=== PATIENT | female | born 1955 | race Caucasian/White ===

== ENCOUNTER 2018-04-10 02:25 | Inpatient (IN) | payer OTHER ==
[~2018-04-10] VITALS: Ht 152.4 cm; Wt 42.6 kg
[~2018-04-10 02:25] MED LIST: ARTIFICIAL TEA1 EACH OU; AVAPRO150 M1 PO; MULTIVITAMINS1 EAC9 PO; NASONEX17 GM NASB; PROBIOTIC1 EACH PO; RANITIDINE HCL150 MG PO; VAGIFEM10 MC1 VAG
--- NOTE | 2018-04-10 11:17 | Patient Discharge Instructions ---
Discharge Instructions General Discharge Information You were seen/treated for: Hip pain You had these procedures: Total hip replacement Watch for these problems: See pre printed sheet Other wound care: See pre printed sheet Diet Continue normal diet: Yes Activity Activity Self Limited: Yes Activity Limited to: Weight bear as tolerated Acute Coronary Syndrome Inclusion Criteria At DC or during hospital stay patient has or had the following: ACS DIAGNOSIS No Discharge Core Measures Meds if any: Prescribed or Continued at Discharge Meds if any: NOT Prescribed or Continued at Discharge Congestive Heart Failure Inclusion Criteria At DC or during hospital stay patient has or had the following: CHF DIAGNOSIS No Discharge Core Measures Meds if any: Prescribed or Continued at Discharge Meds if any: NOT Prescribed or Continued at Discharge Cerebrovascular accident Inclusion Criteria At DC or during hospital stay patient has or had the following: CVA/TIA Diagnosis No Discharge Core Measures Meds if any: Prescribed or Continued at Discharge Meds if any: NOT Prescribed or Continued at Discharge Venous thromboembolism Inclusion Criteria VTE Diagnosis No VTE Type NONE VTE Confirmed by (Test) NONE Discharge Core Measures - Per Current guidelines, there needs to be overlap - treatment for the first 5 days of Warfarin therapy. - If discharged on Warfarin prior to 5 days of - overlap therapy, the patient will need to be - assessed for post discharge needs including - *Post discharge parental anticoagulation - *Warfarin and/or parental anticoagulation education - *Follow up date to check INR post discharge At least 5 days overlap therapy as Inpatient No Meds if any: Prescribed or Continued at Discharge Note: Overlap Therapy is Warfarin and Anticoagulant Meds if any: NOT Prescribed or Continued at Discharge
[2018-04-10] MEDS ORDERED: COLACE100 M1 PO (11:19)
[2018-04-10] MEDS ORDERED: DILAUDID2 M1 PO (11:19)
[2018-04-10] MEDS ORDERED: MIRALAX17 G1 PO (11:19)
[2018-04-10] MEDS ORDERED: ASPIRIN EC81 M1 PO (11:19)
--- NOTE | 2018-04-10 11:21 | Surg Short-stay <48hrs Dis Sum ---
Visit Information Visit Dates Admission Date: 04/10/18 Discharge Date: 04/11/18 Surgical Short Stay DC Summary Admission Diagnosis: DJD/OA Final Diagnosis: Same, s/p L ENEDINA Procedure(s): L ENEDINA - see operative report Summary/Significant Findings: Pt underwent L ENEDINA by Dr Torres and was brought to the PACU in stable condition. Post op she was seen by PT and ambulated WBAT. She had aymptomatic hyponatremia for which she was given Sodium chloride tabs and her sodium level started trending back up to normal. She was able to void without difficulty, her vitals remained stable, her pain was well controlled and she was deemed stable for discharge home with services. Condition at Discharge: good Discharge Disposition: home health services Discharge instructions provided to patient/family: Yes Post discharge follow-up plan: Scheduled appointment with Dr Torres
--- NOTE | 2018-04-10 11:22 | Admission Core Measures ---
Acute Coronary Syndrome (CM) ACS Core Measures Acute Coronary Syndrome Diagnosis No Congestive Heart Failure (NEW) CHF Core Measures Congestive Heart Failure Diagnosis No Cerebrovascular Accident CVA Core Measures CVA/TIA Diagnosis No Venous Thromboembolism VTE Core Amie (View Protocol) VTE Risk Factors Surgery No Mechanical VTE Prophylaxis d/t N/A MechProphylax Ordered No VTE Pharm Prophylaxis d/t NA PharmProphylax ordered Problem List As ranked by this Provider includes Assessment & Plan 1. Status post total hip replacement, left HOME MEDS Home Med List Aspirin (Ecotrin*) 81 MG TABLET.DR 1 TAB PO BID blood thinner Dextran 70/Hypromellose (Artificial Tears) [address]ACH [address]OPERETTE 1 DROP OU PRN DRY EYES (Reported) Docusate Sodium (Colace) 100 MG CAPSULE 1 CAP PO BID constipation Estradiol (Vagifem) 10 MCG TABLET 1 TAB VAG SI HORMONES (Reported) Hydromorphone HCl (Dilaudid) 2 MG TABLET 1-2 TAB PO Q4P PRN pain Irbesartan (Avapro) 150 MG TABLET 1 TAB PO QHS BP (Reported) Lactobacillus Acidophilus (Probiotic) 10 BILLION CELL CAPSULE 1 CAP PO PRN PROBIOTICS (Reported) Mometasone Furoate (Nasonex) 50 MCG SPRAY.PUMP 1 SPRAY NASB DAILY PRN ALLERGIES (Reported) Multiple Vitamin (Multivitamins) 1 EACH TABLET 1 TAB PO DAILY SUPPLEMENT ( Reported) Polyethylene Glycol 3350 (Miralax) 17 GRAM POWD.PACK 1 PAC PO DAILY constipation Ranitidine (Ranitidine HCl) 150 MG TABLET 1 TAB PO BID GI (Reported) Discontinued Medications Aspirin (Ecotrin*) 81 MG TABLET.DR 1 TAB PO DAILY HEART/BLOOD (Reported) Discontinued reason: Changed Dose
--- NOTE | 2018-04-10 12:49 | PN- Orthopedic ---
Subjective Subjective: POST-OP CHECK PT in pacu, recovering well. spinal is still wearing off, pt has some return of mobility and is still mostly numb below the waist. No nausea, tolerating ice chips Deneis CP/SOB Objective Vital Signs and I&Os VSS. afebrile Physical Exam: gen- NAD resp- clear cardiac-RRR abd- soft, NT ext- left hip dressing clean and dry. 2+ DP pulse. no pedal edema Current Medications: Current Medications Sig/Sandie Start time Last Medication Dose Route Stop Time Status Admin Acetaminophen 0 .STK-MED ONE 04/10 905 DC PO Cefazolin Sodium 2,000 MG ONCE 04/10 0000 NR IV 04/10 2359 Estradiol 10 MCG .[SI] 04/10 1115 UNVr VAG Famotidine 20 MG BID 04/10 2100 AC PO Losartan Potassium 50 MG DAILY 04/11 0900 AC PO Oxycodone HCl 0 .STK-MED ONE 04/10 905 DC PO Oxycodone HCl 10 MG ONCE 04/10 0000 NR PO 04/10 2359 Assessment/Plan Assessment/Plan 62yo F SP L ENEDINA POD0. stable, recovering well in PACU pain management bowel regimen reg diet, IVF overnight PT- WBAT w RW dvt ppx- ASA, ALPS and early ambulation reg home meds FU AM labs DC planning- planning to stay [address] Torres in 6 weeks Core Measures Venous Thromboembolism VTE Risk Factors Surgery No Mechanical VTE Prophylaxis d/t N/A MechProphylax Ordered No VTE Pharm Prophylaxis d/t NA PharmProphylax ordered
[2018-04-10 13:29] VITALS: BP 130/60
--- NOTE | 2018-04-10 13:40 | RADIOLOGY REPORT ---
EXAMINATION: XR HIP, LEFT CLINICAL INFORMATION: Postop hip replacement COMPARISON: None TECHNIQUE: AP and crosstable lateral views of the left hip. FINDINGS: There is a total hip prosthesis with acetabular and femoral components in place. No fracture or dislocation is identified. There is air in the soft tissues likely related to recent surgery. IMPRESSION: Status post total hip prosthesis with hardware in place. No acute fracture or dislocation.
[2018-04-10 16:01] VITALS: BP 122/72
--- NOTE | 2018-04-10 16:07 | Operative Report ---
Operative/Inv Procedure Report Surgery Date: 04/10/18 Name of Procedure: Left total hip replacement Pre-Operative Diagnosis: Primary left hip DJD Post-Operative Diagnosis: Same Estimated Blood Loss: 250 Surgeon/Fancy Wire Drawer: Melissa GIBBONS,Nicolás Swift Anesthesia: block Operative/Procedure Note Note: Description of Procedure: The patient was taken to the operating room and positively identified. After induction of spinal anesthesia and administration of appropriate pre-operative antibiotics, the patient was positioned supine on the operating room table and all bony prominences were well padded. After performing a surgical timeout, the left lower extremity was prepped and draped in the usual sterile fashion. A direct anterior approach was made to the left hip. The incision was carried sharply through superficial soft tissues to the level of the fascia. Meticulous hemostasis was maintained with Bovie electocautery. The fascia over the tensor fascia tootie muscle was opened sharply and the interval between the TFL and the sartorius was entered bluntly taking care to stay lateral to the lateral femoral cutaneous nerve. Retractors were placed around the femoral neck and the pericapsular fat was identified. The ascending branches of the lateral femoral circumflex vessels were identified and carefully coagulated. The pericapsular fat and anterior capsule were then resected. A napkin ring osteotomy was performed and the femoral head was removed without difficulty. Attention was then turned to the acetabulum. After appropriate placement of retractors, the acetabulum was exposed. Soft tissue was cleaned from the acetabular margin and notch. Overhanging osteophytes were removed and the teardrop was exposed. The acetabulum was then sequentially reamed to accept a 52 mm [place] Tritanium hemispherical solid shell. This was impacted into place in the appropriate position and fitted with a 32 mm Trident X3 zero degree polyethylene insert. Attention was then turned to the femur. After performing the appropriate ligament releases, the proximal femur was exposed. It was then sequentially broached to accept a size 3 Carmen Accolade II 132 neck angle stem. This was trialed for leg length and stability. The trial component was removed and the final component was impacted into place. The trunnion was carefully cleaned and fit with a 32 mm, +0 Biolox delta ceramic femoral head. The hip was reduced and put through a full range of motion and found to be stable. The articular space was then irrigated with sterile saline. The periarticular soft tissues were infilitrated with Marcaine. The fascial layer was closed with interrupted #1 vicryl suture and the skin was re-approximated with interrupted 2 -0 vicryl. The skin was closed with a running 3-0 V-Lock suture. Steri-strips and a sterile dressing were applied. The patient was awakened and taken to the recovery room in satisfactory condition.
[2018-04-10 19:28] VITALS: BP 128/74
[2018-04-10 21:57] VITALS: BP 94/64
[2018-04-11 07:04] VITALS: BP 90/56
[2018-04-11 08:21] LABS: ABSOLUTE BASOPHIL COUNT 0 /CUMM (0.0-0.2); ABSOLUTE EOSINOPHIL COUNT 0.1 /CUMM (0.0-0.7); ABSOLUTE GRANULOCYTE CT 4.7 /CUMM (1.4-6.5); ABSOLUTE LYMPH COUNT 0.8 /CUMM (1.2-3.4); ABSOLUTE MONOCYTE COUNT 0.4 /CUMM (0.10-0.60); BASOPHIL % 0.2 % (0.0-2.0); EOSINOPHIL % 1.3 % (0-5); GRANULOCYTE % 78.2 % (42.2-75.2); HEMATOCRIT 29.9 % (37-47); MEAN CORPUSCULAR HGB 32.2 PG (27.0-31.0); MEAN CORPUSCULAR HGB CONC 34.1 G/DL (33.0-37.0); MEAN CORPUSCULAR VOLUME 94.6 FL (81.0-99.0); MEAN PLATELET VOLUME 7.1 FL (7.4-10.4); PLATELET COUNT 186 /CUMM (130-400); RBC DISTRIBUTION WIDTH 12.4 % (11.5-14.5); RED BLOOD CELL CT 3.16 /CUMM (4.20-5.40)
[2018-04-11] MEDS ORDERED: TRAMADOL HCL50 M1 PO (09:18)
--- NOTE | 2018-04-11 09:46 | PN- Orthopedic ---
Subjective Subjective: feeling well, minimal pain oob w pt yesterday, walked in halls without difficulty. mild sinclair, no other complaints. Objective Vital Signs and I&Os Vital Signs Date Time Temp Pulse Resp B/P B/P Pulse O2 O2 Flow FiO2 Mean Ox Delivery Rate 04/11 0704 97.7 68 20 90/56 96 Room Air 04/10 2157 97.5 65 18 94/64 97 Room Air 04/10 1928 97.8 63 18 128/74 98 Room Air 04/10 1601 97.4 70 18 122/72 98 Room Air 04/10 1600 Room Air 04/10 1329 97.5 73 18 130/60 100 Room Air Room Air Intake & Output 04/11 0804/11 0000 04/10 1600 04/10 0800 04/10 0000 Intake Total 840 1405 270 Output Total 600 Balance 840 1405 -330 Intake, IV 600 725 150 Intake, Oral 240 680 120 Output, Urine 600 Patient 94 lb 0.01 oz Weight Weight Reported by Patient Measurement Method Physical Exam: gen- nad card- s1s2 rrr pulm- ctab abd- soft nt ext- left hip dressed- cdi. gross sensation intact, +dp, gross dorsi/ plantarflexion intact. calves soft nt, comporession stockings on Results Last 48 Hours of Labs: Laboratory Tests 04/11 636 Chemistry Sodium (137 - 145 mmol/L) 123 L Potassium (3.5 - 5.1 mmol/L) 4.2 Chloride (98 - 107 mmol/L) 90 L Carbon Dioxide (22 - 30 mmol/L) 25 Anion Gap (5 - 16) 8 BUN (7 - 17 mg/dL) 12 Creatinine (0.5 - 1.0 mg/dL) 0.5 Estimated GFR (>60 ml/min) > 60 BUN/Creatinine Ratio (7 - 25 %) 24.0 Hematology CBC w Diff NO MAN DIFF REQ WBC (4.8 - 10.8 /CUMM) 6.0 RBC (4.20 - 5.40 /CUMM) 3.16 L Hgb (12.0 - 16.0 G/DL) 10.2 L Hct (37 - 47 %) 29.9 L MCV (81.0 - 99.0 FL) 94.6 MCH (27.0 - 31.0 PG) 32.2 H MCHC (33.0 - 37.0 G/DL) 34.1 RDW (11.5 - 14.5 %) 12.4 Plt Count (130 - 400 /CUMM) 186 MPV (7.4 - 10.4 FL) 7.1 L Gran % (42.2 - 75.2 %) 78.2 H Lymphocytes % (20.5 - 51.1 %) 13.8 L Monocytes % (1.7 - 9.3 %) 6.5 Eosinophils % (0 - 5 %) 1.3 Basophils % (0.0 - 2.0 %) 0.2 Absolute Granulocytes (1.4 - 6.5 /CUMM) 4.7 Absolute Lymphocytes (1.2 - 3.4 /CUMM) 0.8 L Absolute Monocytes (0.10 - 0.60 /CUMM) 0.4 Absolute Eosinophils (0.0 - 0.7 /CUMM) 0.1 Absolute Basophils (0.0 - 0.2 /CUMM) 0 Assessment/Plan Assessment/Plan A- POD1 sp L ENEDINA, with mild hypotension, also hyponatremia and hypochloridemia, postop nausea, otherwise stable. P- Na Cl tabs. recheck labs this pm hl reg diet as tolerated hold home antihtn meds oob, ambualte, wbat, pt change pain meds to tramadol due to nausea likely due to narcotics dc planning will dw attending Core Measures Venous Thromboembolism VTE Risk Factors Surgery No Mechanical VTE Prophylaxis d/t N/A MechProphylax Ordered No VTE Pharm Prophylaxis d/t NA PharmProphylax ordered
[2018-04-11 14:45] VITALS: BP 100/60
[2018-04-11] MEDS ORDERED: ASPIRIN EC81 M1 PO (18:39)
== END 2018-04-11 19:10 | disposition home health service (06) | DRG 470 ==
LOC: SDA 02:25 → ENRESERV 12:00 → ENTRNSPT 13:00 → EDTRNSPTSTS 13:09 → EDTRNSPT 13:09 → 2NA 13:23 → CMPTRNSPT 13:31 → 2NA 04-11 19:10
PROVIDERS: Physician Assistant Surgical
PROC: 0SRB04A Replacement of Left Hip Joint with Ceramic on Polyethylene Synthetic Substitute, Uncemented, Open Approach (ICD-10-PCS; principal; 2018-04-10)
DX: M16.12 Unilateral primary osteoarthritis, left hip (principal); K21.9 Gastro-esophageal reflux disease without esophagitis; I10 Essential (primary) hypertension
CPT/HCPCS: 2NAP; 36592; 73502-LT; 82436; 97116-GO; 97161-GP; J0131; J0690; J0735; J2405; J2765; J3490; J7042